=== PATIENT | female | born 1990 ===

== ENCOUNTER 2022-05-21 00:15 | Inpatient (IN) | payer MEDICAID ==
[~2022-05-21 00:15] MED LIST: Carboprost Tromethamine 250 MCG/1 ML Amp IM PRN; Citric Acid/Sodium Citrate Solution 30 ML Cup PO ONE; Lactated Ringers 1,000 ML IV SCH; Methylergonovine 0.2 MG Tab PO PRN; Oxytocin 10 Units/1 ML SDV IM PRN; Oxytocin/Normal Saline 30 UNIT/500 ML BAG IV SCH; Sodium Chloride 0.9% 10 ML Syringe FLUSH PRN; Tranexamic Acid 1,000 MG in Sodium Chloride 0.9% 100 ML IV PRN; ceFAZolin 2 GM in Premix Bag 1 BAG IV ONE
[2022-05-21] MEDS: Lactated Ringers 1,000 ML IV SCH ×3 (01:00→05:00)
[2022-05-21] MEDS ORDERED: Oxytocin/Normal Saline 60 UNIT/1,000 ML BAG ONE (01:24)
[2022-05-21] MEDS ORDERED: Ketorolac 30 MG/ML SDV IVPUSH ONE (02:00)
[2022-05-21] MEDS ORDERED: Dexamethasone 4 MG/ML SDV IV ONE (02:00)
[2022-05-21] MEDS ORDERED: Lactated Ringers 1,000 ML IV ONE (02:00)
[2022-05-21] MEDS ORDERED: Morphine PF 1 MG/ML Amp ONE (02:00)
[2022-05-21] MEDS ORDERED: Ondansetron 4 MG/2 ML SDV IV ONE (02:00)
[2022-05-21] MEDS ORDERED: Acetaminophen 325 MG Tab PO PRN (03:02)
[2022-05-21] MEDS ORDERED: Naloxone 2 MG/2 ML Syringe IVPUSH PRN (03:02)
[2022-05-21] MEDS ORDERED: Tranexamic Acid 1,000 MG in Sodium Chloride 0.9% 100 ML IV PRN (03:02)
[2022-05-21] MEDS ORDERED: Misoprostol 400 MCG (4 X 100 MCG TAB) RECTAL PRN (03:02)
[2022-05-21] MEDS ORDERED: Methylergonovine 0.2 MG/1 ML Amp IM PRN (03:02)
[2022-05-21] MEDS ORDERED: diphenhydrAMINE 50 MG/ML SDV IVPUSH PRN (03:02)
[2022-05-21] MEDS ORDERED: Acetaminophen/oxyCODONE 325-5 MG Tab PO PRN ×3 (03:02→11:49)
[2022-05-21] MEDS ORDERED: Carboprost Tromethamine 250 MCG/1 ML Amp IM PRN (03:02)
[2022-05-21] MEDS ORDERED: ePHEDrine 50 MG/ML SDV IVPUSH PRN (03:02)
[2022-05-21] MEDS ORDERED: Measles, Mumps & Rubella Vaccine 0.5 ML SDV SUBCUT ONE (03:02)
[2022-05-21] MEDS ORDERED: Ondansetron 4 MG/2 ML SDV IVPUSH PRN (03:02)
[2022-05-21] MEDS ORDERED: Lactated Ringers 1,000 ML IV SCH (03:15)
[2022-05-21] MEDS: Ketorolac 30 MG/ML SDV IVPUSH SCH ×3 (08:59→20:28)
[2022-05-21] MEDS: Ferrous Sulfate 325 MG Tab PO SCH (09:00)
[2022-05-21] MEDS: Simethicone 80 MG Tab.Chew PO SCH ×4 (09:00→20:28)
[2022-05-21] MEDS: Prenatal Multivitamin with Calcium/Folic Acid/Iron Tab PO SCH (09:00)
[2022-05-21] MEDS: Sodium Chloride 0.9% 10 ML Syringe FLUSH SCH (11:44)
[2022-05-21] MEDS ORDERED: Oxytocin/Normal Saline 30 UNIT/500 ML BAG IV ONE (15:13)
[2022-05-21] MEDS: Acetaminophen/oxyCODONE 325-5 MG Tab PO PRN ×2 (18:45→23:43)
[2022-05-21] MEDS: Docusate Sodium 100 MG Cap PO PRN (20:28)
[2022-05-22] MEDS: Sodium Chloride 0.9% 10 ML Syringe FLUSH SCH ×2 (01:22→17:29)
[2022-05-22] MEDS: Ibuprofen 800 MG Tab PO PRN ×2 (04:16→15:38)
[2022-05-22] MEDS: Acetaminophen/oxyCODONE 325-5 MG Tab PO PRN ×5 (05:20→22:30)
[2022-05-22] MEDS: Prenatal Multivitamin with Calcium/Folic Acid/Iron Tab PO SCH (09:37)
[2022-05-22] MEDS: Ferrous Sulfate 325 MG Tab PO SCH (09:38)
[2022-05-22] MEDS: Simethicone 80 MG Tab.Chew PO SCH ×4 (09:38→21:12)
[2022-05-22] MEDS: Docusate Sodium 100 MG Cap PO PRN (21:12)
[2022-05-23] MEDS: Ibuprofen 800 MG Tab PO PRN (01:01)
[2022-05-23] MEDS: Acetaminophen/oxyCODONE 325-5 MG Tab PO PRN ×2 (02:17→06:12)
[2022-05-23] MEDS: Sodium Chloride 0.9% 10 ML Syringe FLUSH SCH (02:20)
[2022-05-23] MEDS: Simethicone 80 MG Tab.Chew PO SCH (12:50)
[2022-05-23] MEDS: Ferrous Sulfate 325 MG Tab PO SCH (12:50)
[2022-05-23] MEDS: Prenatal Multivitamin with Calcium/Folic Acid/Iron Tab PO SCH (12:50)
== END 2022-05-23 10:45 | disposition home or self-care (01) | DRG 787 ==
LOC: DL.OB 00:15 → OBSVTOIN 02:08 → DL.OB 02:08
PROVIDERS: ADMIT Family Medicine; ATTEND Family Medicine
PROC: 10D00Z1 Extraction of Products of Conception, Low, Open Approach (ICD-10-PCS; principal; 2022-05-21)
DX: O34.211 Maternal care for low transverse scar from previous cesarean delivery (principal); D62 Acute posthemorrhagic anemia; Z3A.39 39 weeks gestation of pregnancy; Z37.0 Single live birth; O99.02 Anemia complicating childbirth; O69.81X0 Labor and delivery complicated by cord around neck, without compression, not applicable or unspecified; Z20.822 Contact with and (suspected) exposure to COVID-19
CPT/HCPCS: 01961; 36415; 59025; 85025; 85027; 86850; 86870; 86900; 86901; 90471; 90707; A9270-GY; J0690; J1100; J1885; J2274; J2405; J2590; J7120; U0002

== ENCOUNTER 2025-04-29 22:29 | Inpatient (IN) | payer BC ==
[2025-04-29] MEDS ORDERED: Oxytocin 10 Units/1 ML SDV IM PRN (22:52)
[2025-04-29] MEDS ORDERED: Carboprost Tromethamine 250 MCG/1 ML Amp IM PRN (22:52)
[2025-04-29] MEDS ORDERED: Sodium Chloride 0.9% 10 ML Syringe FLUSH PRN (22:52)
[2025-04-29] MEDS: Lactated Ringers 1,000 ML IV SCH (23:00)
[2025-04-29] MEDS ORDERED: Oxytocin/Lactated Ringers 30 UNIT/500 ML BAG IV SCH (23:00)
[2025-04-29] MEDS ORDERED: Lactated Ringers 1,000 ML IV SCH (23:00)
[2025-04-29 23:14] LABS: PLATELET COUNT,PLT 210 10^3/uL (150-450); RED BLOOD CELL COUNT 4.09 10^6/uL (4.2-5.4); WHITE BLOOD CELL COUNT,WBC 12.8 10^3/uL (5.0-10.0)
[2025-04-29 23:15] LABS: BASOPHILS PERCENT AUTO 0.3 % (0.0-1.0); EOSINOPHILS PERCENT AUTO 1.6 % (1.0-3.0); LYMPHOCYTES PERCENT AUTO 15.4 % (20.5-50.1); MONOCYTES PERCENT AUTO 8.0 % (2-8); NEUTROPHILS PERCENT AUTO 74.7 % (42.2-75.2)
[2025-04-29 23:59] LABS: EOSINOPHILS PERCENT MAN 1 % (1-3); LYMPHOCYTES PERCENT MAN 13 % (20-50); MONOCYTES PERCENT MAN 3 % (2-8); SEG NEUTROPHILS PERCENT MAN 83 % (42-75)
[2025-04-30] MEDS ORDERED: ePHEDrine 50 MG/ML SDV IVPUSH PRN (01:21)
[2025-04-30] MEDS ORDERED: Ondansetron 4 MG/2 ML SDV IVPUSH PRN (01:21)
[2025-04-30] MEDS ORDERED: Carboprost Tromethamine 250 MCG/1 ML Amp IM PRN (01:21)
[2025-04-30] MEDS ORDERED: diphenhydrAMINE 50 MG/ML SDV IVPUSH PRN (01:21)
[2025-04-30] MEDS: Oxytocin/Normal Saline 30 UNIT/500 ML BAG IV SCH (01:24)
[2025-04-30] MEDS ORDERED: Lactated Ringers 1,000 ML IV SCH (01:30)
[2025-04-30] MEDS ORDERED: Ketorolac 30 MG/ML SDV ONE (01:46)
[2025-04-30] MEDS ORDERED: ePHEDrine 50 MG/ML SDV ONE (01:46)
[2025-04-30] MEDS ORDERED: Dexamethasone 4 MG/ML SDV ONE (01:47)
[2025-04-30] MEDS: Ketorolac 30 MG/ML SDV IVPUSH SCH (06:12)
[2025-04-30] MEDS: Acetaminophen/oxyCODONE 325-5 MG Tab PO PRN ×2 (07:12→20:07)
[2025-04-30] MEDS: Prenatal Multivitamin with Calcium/Folic Acid/Iron Tab PO SCH (07:12)
[2025-04-30] MEDS: Sodium Chloride 0.9% 10 ML Syringe FLUSH SCH (17:51)
[2025-05-01] MEDS: Measles, Mumps & Rubella Vaccine 0.5 ML SDV SUBCUT ONE (08:04)
[2025-05-02 06:13] LABS: PLATELET COUNT,PLT 192.0 10^3/uL (150-450); RED BLOOD CELL COUNT 3.86 10^6/uL (4.2-5.4); WHITE BLOOD CELL COUNT,WBC 13.0 10^3/uL (5.0-10.0)
[2025-05-02] MEDS ORDERED: Morphine PF 10 MG/10 ML SDV EPIDUR ONE (12:29)
[2025-05-02] MEDS ORDERED: ePHEDrine 50 MG/ML SDV IV ONE (12:29)
[2025-05-02] MEDS ORDERED: Ketorolac 30 MG/ML SDV IVPUSH ONE (12:29)
[2025-05-02] MEDS ORDERED: Ondansetron 4 MG/2 ML SDV IV ONE (12:29)
[2025-05-02] MEDS ORDERED: Dexamethasone 4 MG/ML SDV IV ONE (12:29)
[2025-05-02] MEDS ORDERED: Oxytocin/Normal Saline 30 UNIT/500 ML BAG IV ONE (12:29)
[2025-05-02] MEDS ORDERED: Ropivacaine 100 ML EPIDUR ONE (12:29)
== END 2025-05-02 12:30 | disposition home or self-care (01) | DRG 540 ==
LOC: DL.OBCHECK 22:29 → DL.MS 23:19 → OBSVTOIN 04-30 00:46
PROVIDERS: ADMIT Family Medicine; ATTEND Family Medicine
PROC: 10D00Z1 Extraction of Products of Conception, Low, Open Approach (ICD-10-PCS; principal; 2025-04-30)
PROC: 3E0234Z Introduction of Serum, Toxoid and Vaccine into Muscle, Percutaneous Approach (ICD-10-PCS; principal; 2025-04-30)
DX: O34.211 Maternal care for low transverse scar from previous cesarean delivery (principal); Z3A.39 39 weeks gestation of pregnancy; Z37.0 Single live birth; Z86.16 Personal history of COVID-19; Z79.899 Other long term (current) drug therapy; Z23 Encounter for immunization
CPT/HCPCS: 01961; 36415; 59025; 85025; 85027; 86850; 86870; 86900; 86901; 90471; 90707; 94010; A9270-GY; J1100; J1885; J2274; J2405; J2590; J2795; J3490; J7120